=== PATIENT | male | born 1945 | race Caucasian/White ===

== ENCOUNTER 2018-06-17 06:39 | Day surgery (SDC) | payer OTHER ==
[2018-06-17 07:18] VITALS: BMI 24.0
[2018-06-17 08:42] VITALS: TEMP 97.5
[2018-06-17 09:15] VITALS: PULSE 64
[2018-06-17 09:45] VITALS: BP 106/65
--- NOTE | 2018-06-18 16:27 | PATH ---
Surgical Pathology Report Patient Name: CONCEPCIÓN WATKINS [facility]. Rec. #: [id number] /Age/Gender: 1945 (Age: 73) / M Account: [id number] Location: [facility]-ENDOSCOPY Taken: 06/17/2018 Received: 06/17/2018 Reported: 06/18/2018 Physicians: Edward Nieves M.D. Specimen(s) Received A: BX RIGHT COLON POLYP B: BX TRANSVERSE COLON POLYP Clinical History Screening Postoperative diagnosis: Colon polyps Final Diagnosis A. RIGHT COLON POLYP, POLYPECTOMY: TUBULAR ADENOMA. B. TRANSVERSE COLON POLYP, POLYPECTOMY: TUBULAR ADENOMA. Electronically Signed Alhaji Colvin M.D. Gross Description A. Received in formalin, labeled "biopsy polyp right colon" are 5 mckeon, irregular portions of soft tissue ranging from 0.1-0.5 cm. in greatest dimension. The specimens are submitted in toto in one cassette. B. Received in formalin, labeled "polyp transverse colon" is a mckeon, irregular portion of soft tissue measuring 0.9 cm. in greatest dimension. The specimen is submitted in toto in one cassette. /06/17/2018 saudi06/17/2018
== END 2018-06-17 09:21 | disposition home or self-care (01) ==
LOC: JASU-ENDO 06:39
PROVIDERS: ATTEND Internal Medicine Gastroenterology
PROC: 0DBF8ZX Excision of Right Large Intestine, Via Natural or Artificial Opening Endoscopic, Diagnostic (ICD-10-PCS; 2018-06-17)
PROC: 0DBL8ZX Excision of Transverse Colon, Via Natural or Artificial Opening Endoscopic, Diagnostic (ICD-10-PCS; principal; 2018-06-17 08:00)
DX: Z12.11 Encounter for screening for malignant neoplasm of colon (principal); Z86.010 Personal history of colon polyps; D12.3 Benign neoplasm of transverse colon; K63.5 Polyp of colon
CPT/HCPCS: 82962; 88305-TC

== ENCOUNTER 2021-10-05 04:39 | Day surgery (SDC) | payer OTHER ==
[2021-09-29 13:32] VITALS: BMI 21.7
[2021-10-05 08:46] VITALS: TEMP 97.5
[2021-10-05 09:17] VITALS: BP 100/57; PULSE 62
== END 2021-10-05 09:17 | disposition home or self-care (01) ==
LOC: JASU-ENDO 04:39
PROVIDERS: ATTEND Internal Medicine Gastroenterology
PROC: 0DJD8ZZ Inspection of Lower Intestinal Tract, Via Natural or Artificial Opening Endoscopic (ICD-10-PCS; principal; 2021-10-05 08:00)
DX: Z12.11 Encounter for screening for malignant neoplasm of colon (principal); Z86.010 Personal history of colon polyps; K64.8 Other hemorrhoids; K63.89 Other specified diseases of intestine

== ENCOUNTER 2024-04-02 04:29 | Day surgery (SDC) | payer OTHER ==
[2024-03-25 12:39] VITALS: BMI 22.9
[2024-04-02] MEDS ORDERED: ETOMIDATE 20 MG/10 ML VIAL IVPUSH ONE (09:23)
[2024-04-02] MEDS ORDERED: LIDOCAINE VISCOUS 2% ORAL/TOP 15 ML UNIT-DOSE CUP ONE (09:58)
[2024-04-02 10:20] VITALS: TEMP 98.5
[2024-04-02 11:05] VITALS: BP 119/66; PULSE 76; RESP 19
== END 2024-04-02 11:00 | disposition home or self-care (01) ==
LOC: JASU-ENDO 04:29
PROVIDERS: ATTEND Internal Medicine Gastroenterology
PROC: 0DJ08ZZ Inspection of Upper Intestinal Tract, Via Natural or Artificial Opening Endoscopic (ICD-10-PCS; principal; 2024-04-02 08:00)
DX: I85.10 Secondary esophageal varices without bleeding (principal); I86.8 Varicose veins of other specified sites; K74.60 Unspecified cirrhosis of liver; I27.0 Primary pulmonary hypertension; E11.9 Type 2 diabetes mellitus without complications; Z79.84 Long term (current) use of oral hypoglycemic drugs
CPT/HCPCS: 82962